=== PATIENT | female | born 1985 | race Caucasian/White ===

== ENCOUNTER 2018-06-17 09:45 | Day surgery (SDC) | payer MEDICAID ==
[~2018-06-17] VITALS: Ht 165.1 cm; Wt 59.9 kg
[2018-06-17 10:54] LABS: HCG,QUAL RESULT NEGATIVE (NEGATIVE)
[2018-06-17] MEDS ORDERED: NS 250 ML IV.SOLN IV ONE (13:00)
[2018-06-17] MEDS ORDERED: ROCURONIUM BROMIDE 10 MG/ML (ZEMURON) IV ONE (13:00)
[2018-06-17] MEDS ORDERED: DEXAMETHASONE SOD PHOSPHATE 4 MG/ML VIAL IVP ONE (13:00)
[2018-06-17] MEDS ORDERED: BACITRACIN ZINC 15 GM TOPICAL OINTMENT TP ONE (13:00)
[2018-06-17] MEDS ORDERED: EPINEPHrine 1 MG/ML AMP IV ONE (13:00)
[2018-06-17] MEDS ORDERED: LIDOCAINE/EPI 1% 1:100000 20 ML VIAL INJ ONE (13:00)
[2018-06-17] MEDS ORDERED: ONDANSETRON HCL 4 MG/2 ML VIAL IVP ONE (13:00)
[2018-06-17] MEDS ORDERED: WATER FOR IRRIGATION,STERILE 1,000 ML IRRIG.SOLN IR ONE (13:00)
[2018-06-17] MEDS ORDERED: NEOSTIGMINE METHYLSULFATE 1 MG/ML, 10 ML VIAL IVP ONE (13:00)
[2018-06-17] MEDS ORDERED: PROPOFOL 200MG/ 20ML VIAL (DIPRIVAN) IV ONE (13:00)
[2018-06-17] MEDS ORDERED: SEVOFLURANE 15 MIN GAS INH ONE (13:00)
[2018-06-17] MEDS ORDERED: MUPIROCIN 2% TOPICAL OINTMENT 22 GM TP ONE (13:00)
[2018-06-17] MEDS ORDERED: fentaNYL CITRATE 250 MCG/5 ML AMP IV ONE (13:00)
[2018-06-17] MEDS ORDERED: NS IRRIG SOLN 1000 ML IR ONE (13:00)
[2018-06-17] MEDS ORDERED: MIDAZOLAM HCL 5 MG/5 ML VIAL IVP ONE (13:00)
[2018-06-17] MEDS ORDERED: GLYCOPYRROLATE 0.2 MG/ML VIAL IJ ONE (13:00)
[2018-06-17] MEDS ORDERED: LR 1,000 ML IV SCH (13:39)
[2018-06-17] MEDS ORDERED: MORPHINE 4 MG/ML INJ. SYRINGE IVP PRN ×3 (13:45)
[2018-06-17] MEDS ORDERED: METOCLOPRAMIDE HCL 10 MG/2 ML VIAL IVP PRN (13:45)
[2018-06-17] MEDS ORDERED: METOCLOPRAMIDE HCL 10 MG/2 ML VIAL ONE (15:43)
[2018-06-17] MEDS ORDERED: MORPHINE 4 MG/ML INJ. SYRINGE ONE (15:44)
[2018-06-17] MEDS ORDERED: HYDROcodone/ACETAMIN 5-325 MG TAB (NORCO/ VICODIN) PO ONE (16:45)
[2018-06-17] MEDS ORDERED: HYDROcodone/ACETAMIN 5-325 MG TAB (NORCO/ VICODIN) ONE (16:55)
[2018-06-17 17:12] VITALS: BP_SYST 115
== END 2018-06-17 18:15 | disposition home or self-care (01) ==
LOC: SDS 09:45
PROVIDERS: ATTEND Otolaryngology
DX: J32.9 Chronic sinusitis, unspecified (principal); J34.89 Other specified disorders of nose and nasal sinuses; Z79.899 Other long term (current) drug therapy; Z98.890 Other specified postprocedural states; J33.0 Polyp of nasal cavity; J45.909 Unspecified asthma, uncomplicated
CPT/HCPCS: 30140; 31295; 31298; 84703; 87070; 87075; 87101; 87186; 88305; 88311; C1726; J0171; J1100; J2250; J2270; J2405; J2704; J2710; J2765; J3010; J3490; J7050; J7120